=== PATIENT | male | born 1950 | race Caucasian/White ===

== ENCOUNTER 2021-03-17 20:02 | Emergency (ER) | payer MEDICARE ==
[~2021-03-17] VITALS: Ht 167.6 cm; Wt 99.3 kg
[2021-03-17] MEDS ORDERED: LIDOCAINE HCL 2% 20 ML VIAL IJ ONE (21:45)
[2021-03-17] MEDS ORDERED: CEFAZOLIN 1 G in IV DEXTROSE 5% 50 ML IV ONE (22:45)
[2021-03-17] MEDS ORDERED: CEFA500C29 PO (23:16)
[2021-03-17] MEDS ORDERED: OXYC-128 PO (23:16)
[2021-03-17] MEDS ORDERED: CEFAZOLIN 1 G VIAL ONE (23:35)
[2021-03-17] MEDS ORDERED: OXYCODONE/APAP 5-325 MG TABLET PO ONE (23:45)
[2021-03-17] MEDS ORDERED: OXYCODONE/APAP 5-325 MG TABLET ONE (23:54)
--- NOTE | 2021-03-18 00:33 | NUR ---
IV removed. Catheter intact and site benign. Pressure and 4x4 gauze applied to site. No bleeding noted.
[2021-03-18] MEDS ORDERED: OXYCODONE/APAP 5-325 MG TABLET ONE (00:37)
--- NOTE | 2021-03-18 00:40 | NUR ---
Patient discharged to home in stable condition. Written and verbal after care instructions given. Patient verbalizes understanding of instructions. Stressed follow up or return to ER for worsening s/s.
[2021-03-18] MEDS ORDERED: OXYCODONE/APAP 5-325 MG TABLET PO ONE (00:45)
[2021-03-18 00:47] VITALS: BP 129/72
== END 2021-03-18 00:40 | disposition home or self-care (01) ==
LOC: ER 20:04
DX: S61.412A Laceration without foreign body of left hand, initial encounter (principal); W01.0XXA Fall on same level from slipping, tripping and stumbling without subsequent striking against object, initial encounter; Y92.89 Other specified places as the place of occurrence of the external cause; E11.9 Type 2 diabetes mellitus without complications
CPT/HCPCS: 12004; 96365; 99284; J0690; J7060; A4663